=== PATIENT | male | born 1995 | race Two or more races ===

== ENCOUNTER 2016-11-13 04:10 | Emergency (ER) | payer BC, MEDICAID ==
[~2016-11-13] VITALS: Ht 182.9 cm; Wt 82.6 kg
--- NOTE | 2016-11-13 04:34 | NUR ---
pt bib parents, ambulatory w/ steady gait, here for c/o RLQ abd pain radiating to rt groin w/ n/v and rt testicular pain, painful urination x5 hrs, denies hematuria. AOx4, afebrile w/ resp even & unlabored, denies any sob, no active N/V at this time, facial grimacing w/ tenderness to palpation rlq abd & rt testicle. pt in gown, on continuous monitoring. Urine obtained & sent to lab. Pending further curtis shi MD.
--- NOTE | 2016-11-13 04:36 | NUR ---
Dr. Lopez at bedside for further eval.
--- NOTE | 2016-11-13 04:40 | NUR ---
IV[facility] started, labs drawn & sent. pt medicated as ordered.
[2016-11-13] MEDS ORDERED: ONDANSETRON HCL/PF 4 MG/2 ML VIAL ONE (04:41)
[2016-11-13] MEDS ORDERED: MORPHINE SULFATE INJ 4 MG/ML DISP.SYRIN ONE (04:41)
[2016-11-13] MEDS ORDERED: CT SWABBABLE VALVE TRANS SET 1 EA INFUS.SET MC ONE (04:44)
[2016-11-13] MEDS ORDERED: IOHEXOL-300 100 ML VIAL IV ONE (04:44)
[2016-11-13] MEDS ORDERED: IV NS 0.9% 250 ML IV ONE (04:45)
[2016-11-13] MEDS ORDERED: ONDANSETRON HCL/PF 4 MG/2 ML VIAL IVP ONE (05:00)
[2016-11-13] MEDS ORDERED: MORPHINE SULFATE INJ 2 MG/ML DISP.SYRIN IV ONE (05:00)
[2016-11-13] MEDS ORDERED: IV NS 0.9% 1,000 ML BAG IV ONE (05:00)
[2016-11-13 05:03] LABS: APPEARANCE,URINE SL CLOUDY (CLEAR); BILIRUBIN,URINE NEGATIVE (NEGATIVE); BLOOD, URINE 3+ Ery/uL (NEGATIVE); COLOR,URINE YELLOW (YELLOW); KETONES,URINE 3+ (NEGATIVE); LEUKOCYTE ESTERASE ,URINE NEGATIVE (NEGATIVE); NITRITE, URINE NEGATIVE (NEGATIVE); PROTEIN,URINE TRACE mg/dl (NEGATIVE); UGLUCOSE NEGATIVE (NEGATIVE); UROBILINOGEN,URINE 0.2 EU/dL (0.2)
[2016-11-13 05:05] LABS: BASOPHILS % (AUTO) 0.1 % (0.0-2.0); EOSINOPHILS % (AUTO) 0.2 % (0.0-6.0); HEMATOCRIT 46 % (39-51); HEMOGLOBIN 15.3 g/dL (13.5-17.5); LYMPHOCYTES # (AUTO) 1.1 /CMM (0.8-4.8); LYMPHOCYTES % (AUTO) 10.7 % (20.0-44.0); MEAN CORPUSCULAR HEMOGLOBIN 27 PG (26.0-33.0); MEAN CORPUSCULAR HGB CONC 34 g/dl (31.0-36.0); MEAN CORPUSCULAR VOLUME 82 fL (80-96); MONOCYTES # (AUTO) 0.3 /CMM (0.1-1.30); MONOCYTES % (AUTO) 3.5 % (2.0-12.0); NEUTROPHILS # (AUTO) 8.5 /CMM (1.8-8.9); NEUTROPHILS % (AUTO) 85.5 % (43.0-81.0); PLATELET COUNT (AUTO) 162 /CMM (150-450); RDW COEFFICIENT OF VARIATION 13.3 (11.5-15.0); RED BLOOD CELL COUNT(AUTO) 5.58 MIL/uL (4.5-6.0); WHITE BLOOD COUNT (AUTO) 9.9 K/uL (4.3-11.0)
[2016-11-13 05:14] LABS: BACTERIA,URINE None seen /HPF (None Seen); SQUAMOUS EPITHELIAL CELL,UR Few /HPF (None Seen); YEAST,URINE Moderate /HPF (None Seen)
[2016-11-13 05:16] LABS: CALCIUM, SERUM 9.3 mg/dL (8.5-10.1)
[2016-11-13 05:17] LABS: INR 1.04 (0.87-1.13); PROTHROMBIN TIME 11.2 SECS (9.5-12.7)
[2016-11-13 05:22] LABS: ALBUMIN 4.4 g/dL (3.4-5.0); BILIRUBIN,DIRECT 0.1 mg/dL (0.0-0.2); BILIRUBIN,TOTAL 0.9 mg/dL (0.2-1.0); TOTAL PROTEIN, SERUM 7.6 g/dL (6.4-8.2)
--- NOTE | 2016-11-13 05:24 | NUR ---
pt transferred via gurney to CT.
--- NOTE | 2016-11-13 06:01 | NUR ---
Pt ambulatory with a steady gait to bathroom.
[2016-11-13 06:26] VITALS: BP 130/74
== END 2016-11-13 06:27 | disposition home or self-care (01) ==
LOC: ER 04:12
DX: N20.1 Calculus of ureter (principal); Z88.0 Allergy status to penicillin
CPT/HCPCS: 36415; 74160; 80048; 80076; 81001; 83690; 85025; 85730; 87086; 96361; 96374; 99285; A4606; J2270; J2405; J7030; J7050; Q9967; Z7610; 81000-TC